=== PATIENT | female | born 1970 | race Caucasian/White ===

== ENCOUNTER 2018-05-29 13:24 | Emergency (ER) | payer OTHER, SELFPAY ==
[~2018-05-29 13:24] MED LIST: Iopamidol 370 76% 125 ML VIAL FS ONE
[2018-05-29 14:12] LABS: ALT (SGPT) 12 U/L (8-55); AST (SGOT) 13 U/L (5-34); Alkaline Phosphatase 62 U/L (40-150); Anion Gap 13 mmol/L (10-20); BUN (Urea Nitrogen) 11 mg/dL (7.0-18.7); Bilirubin, Total Less than 0.2 mg/dL (0.2-1.2); CK (CPK) 73 U/L (29-168); Calc. Creatinine Clearance 0 mL/min (70-130); Calcium 8.8 mg/dL (7.8-10.44); Carbon Dioxide 24 mmol/L (22-29); Chloride 111 mmol/L (98-107); Estimated GFR-MDRD 90; Globulin 3.2 g/dL (2.4-3.5); Glucose 94 mg/dL (70-105); Potassium 4.6 mmol/L (3.5-5.1); Protein, Total 7.2 g/dL (6.0-8.3); Sodium 143 mmol/L (136-145)
--- NOTE | 2018-05-29 14:23 | RAD ---
PA AND LATERAL CHEST: Date: 05/29/18 HISTORY: Chest pain. Chronic cough. COMPARISON: 06/12/12 exam. FINDINGS: Heart size and mediastinum are within normal limits. Lungs are clear of infiltrates. No significant b isidoro findings. IMPRESSION: No active intrathoracic disease. POS: [facility]
[2018-05-29 14:30] LABS: #Basophils 0.1 thou/uL (0.0-0.2); #Eosinphils 0.1 thou/uL (0.0-0.7); #Lymphocytes 2.4 thou/uL (1.20-3.40); #Monocytes 0.5 thou/uL (0.11-0.59); #Neutrophils 4.8 thou/uL (1.40-6.50); %Basophils 1.5 % (0.0-1.0); %Eosinophils 1.3 % (0.0-10.0); %Lymphocytes 30.5 % (21.0-51.0); %Monocytes 6.3 % (0.0-10.0); %Neutrophils 60.5 % (42.0-75.0); Mean Corpuscular HGB CONC 33.2 g/dL (32.0-36.0); Mean Corpuscular Hemoglobin 31.4 pg (27.0-31.0); Mean Corpuscular Volume 94.7 fL (78.0-98.0); Mean Platelet Volume 7.5 fL (7.4-10.4); Platelet Count 279 thou/uL (130-400); RBC Distribution Width 12.6 % (11.5-14.5); Red Blood Cell (RBC) Count 4.15 mill/uL (4.20-5.40); White Blood Cell (WBC) Count 7.9 thou/uL (4.8-10.8)
[2018-05-29] MEDS ORDERED: ALPRAZolam 0.5 MG TAB ONE (16:07)
[2018-05-29] MEDS ORDERED: Nitroglycerin 2% Ointment 1 INCH/1 GM Packet ONE (16:08)
[2018-05-29 16:54] LABS: Troponin I Less than 0.010 ng/mL (< 0.028)
--- NOTE | 2018-05-29 19:18 | CT ---
CT ANGIOGRAM OF THE CHEST 05/29/18 HISTORY: Substernal chest pain. COMPARISON: None. TECHNIQUE: CT angiogram of the chest is performed in the axial plane. Three dimensional reformatted images are s ubmitted for interpretation. FINDINGS: No mediastinal mass, lymphadenopathy or hematoma. Heart size is within normal limits. No pericardial effusion. The thoracic aorta and upper abdominal aorta have a normal caliber. No periaortic fat stran ding. The visualized upper solid abdominal viscera is unremarkable. Mild hyperplasia of the adrenal g lands, bilaterally. Trachea and central bronchi are patent. Dependent atelectatic changes. No masses or consolidation. Pa tchy ground glass opacities. No pleural effusion or pneumothorax. No lytic or blastic lesions in the osseous structures. Adequate contrast opacification of the pulmona ry arterial system to the level of the segmental arteries. No filling defect to suggest thromboemboli sm. IMPRESSION: 1. No evidence of pulmonary artery embolism to the level of the segmental arteries. 2. Patchy ground glass opacities. Correlate for edema. POS: [facility]
== END 2018-05-29 18:12 | disposition home or self-care (01) ==
LOC: MADERS 13:24
DX: R07.2 Precordial pain (principal); F17.210 Nicotine dependence, cigarettes, uncomplicated
CPT/HCPCS: 36415; 71046; 71275; 80053; 82550; 83880; 84484; 85025; 85379; 87804; 93005; Q9967

== ENCOUNTER 2022-11-21 15:08 | Emergency (ER) | payer SELFPAY ==
[2022-11-21] MEDS ORDERED: HYDROcodone/Acetaminophen 5/325 mg Tablet ONE (16:22)
== END 2022-11-21 17:30 | disposition home or self-care (01) ==
LOC: MADERS 15:08
DX: S92.351A Displaced fracture of fifth metatarsal bone, right foot, initial encounter for closed fracture (principal); I10 Essential (primary) hypertension; X50.0XXA Overexertion from strenuous movement or load, initial encounter; Z87.891 Personal history of nicotine dependence; Z79.899 Other long term (current) drug therapy
CPT/HCPCS: 29515

== ENCOUNTER 2024-10-27 22:55 | Emergency (ER) | payer SELFPAY ==
[2024-10-27] MEDS ORDERED: Cephalexin 500 MG CAP ONE (23:13)
[2024-10-27] MEDS ORDERED: Sulfameth/Trimethoprim DS 800-160mg TAB ONE (23:13)
[2024-10-27] MEDS ORDERED: Ibuprofen 800 MG TAB ONE (23:13)
== END 2024-10-27 23:15 | disposition home or self-care (01) ==
LOC: MADERS 22:55
DX: L03.116 Cellulitis of left lower limb (principal); I10 Essential (primary) hypertension; Z87.891 Personal history of nicotine dependence
CPT/HCPCS: 99282